=== PATIENT | male | born 1995 | race Caucasian/White ===

== ENCOUNTER → 2017-05-29 | Outpatient (CLI) | payer OTHER ==
--- NOTE | 2017-06-10 18:06 | SLEEPCENT ---
DATE OF PROCEDURE: 05/29/2017 REFERRING PROVIDER: BRIJESH Munguia INTERPRETATION: Nocturnal polysomnography was performed for the evaluation of sleep apnea syndrome symptoms consisting of excessive daytime sleepiness, mood disorders, insomnia, gasping respiration, morning headaches, and nonrestorative sleep. A total of 7 hours and 42 minutes of data was reviewed with 339 minutes of sleep identified. Sleep latency was 18.5 minutes. Rapid eye movement (REM) latency was 141.5 minutes. All stages of sleep were identified. EKG showed sinus bradycardia with an average heart rate of 46 beats per minute. Speeding and slowing was noted surrounding some respiratory events. No epileptiform discharge observed. There were 15 respiratory events identified of 10 seconds in duration or longer for an apnea-hypopnea index (AHI) of 2.7. The events were predominantly obstructive hypopnea-apneas. Respiratory effort-related arousal (RERA) index was 1.8, giving a total respiratory disturbance index (RDI) of 4.5. Mean oxygen saturation for the study was 96% with a minimum recorded value of 92%. Arousal index was 8.7. IMPRESSION: Snoring, minimal. No evidence of significant sleep-disordered breathing. RECOMMENDATION: Recommend consideration of other causes for his symptoms including but not limited to medications, sleep insufficiency, narcolepsy, or other.
== END ==
LOC: M SLEEP 19:31
PROVIDERS: ATTEND Internal Medicine Pulmonary Disease
DX: G47.30 Sleep apnea, unspecified (principal)

== ENCOUNTER → 2017-07-07 | Outpatient (CLI) | payer OTHER ==
--- NOTE | 2017-07-08 07:44 | REP ---
Clinical: Right lower quadrant pain. Findings: Lung bases demonstrate a small 3 mm density in the lateral deep left lower lobe (image 15) likely representing small scar or focal atelectasis. Lung bases are otherwise clear. Liver, spleen, pancreas, gallbladder, bilateral adrenal glands and kidneys are normal for noncontrast evaluation. The enteric system suggests moderate fecal stasis without acute obstruction or inflammatory process. No evidence for appendicitis. Pelvis demonstrates normal bladder and age-appropriate prostate/seminal vesicles. No free air. No free fluid. No obvious adenopathy or mass lesion. Surrounding musculoskeletal structures are intact. Impression: 1. No acute abdominopelvic pathology appreciated. 2. Moderate fecal stasis. 3. 3 mm density in the lateral left lung base likely represent small chronic scarring or focal atelectasis. Signed by Leo Crooks MD 07/08/2017 07:35 A
== END ==
LOC: M RAD 08:19
PROVIDERS: ATTEND Internal Medicine Gastroenterology
DX: K59.8 Other specified functional intestinal disorders (principal); R91.8 Other nonspecific abnormal finding of lung field

== ENCOUNTER → 2019-06-01 | Outpatient (REF) | payer OTHER ==
[2019-06-01 13:55] LABS: APPEARANCE, URINE CLEAR (CLEAR); BACTERIA, URINE AUTO NEGATIVE (NEGATIVE); BILIRUBIN, URINE AUTO NEGATIVE (NEGATIVE); BLOOD, URINE BLOOD NEGATIVE (NEGATIVE); COLOR, URINE STRAW (YELLOW); GLUCOSE, URINE (UA) AUTO NEGATIVE (NEGATIVE); KETONE, URINE AUTO NEGATIVE (NEGATIVE); LEUKOCYTE ESTERASE, URINE AUTO NEGATIVE (NEGATIVE); MUCUS, URINE SMALL (NEGATIVE); NITRITE, URINE AUTO NEGATIVE (NEGATIVE); PROTEIN, URINE AUTO NEGATIVE (NEGATIVE); RBC, URINE AUTO 0 /HPF (0-3); SPECIFIC GRAVITY URINE AUTO 1.005 (1.002-1.035); SQUAMOUS EPITHELIAL CELL UR AU 0 /HPF (0-6); UROBILINOGEN, URINE AUTO 0.2 mg/dL (0.0-2.0); WBC, URINE AUTO 0 /HPF (0-3)
[2019-06-01 15:16] LABS: CHLAMYDIA DNA AMPLIFICATION NEGATIVE (NEGATIVE); GC DNA AMPLIFICATION NEGATIVE (NEGATIVE)
== END ==
LOC: M SMT 13:15
PROVIDERS: ATTEND Nurse Practitioner Family
DX: N50.819 Testicular pain, unspecified (principal)

== ENCOUNTER → 2020-07-20 | Outpatient (CLI) | payer SELFPAY | LOC: M LABSMTC 11:30 | PROVIDERS: ATTEND Pediatrics | DX: Z11.59 Encounter for screening for other viral diseases (principal) ==

== ENCOUNTER → 2020-07-27 | Outpatient (CLI) | payer SELFPAY | LOC: M LABSMTC 11:18 | PROVIDERS: ATTEND Pediatrics | DX: Z20.828 Contact with and (suspected) exposure to other viral communicable diseases (principal) ==

== ENCOUNTER → 2020-07-30 | Outpatient (CLI) | payer SELFPAY | LOC: M LABSMTC 12:11 | PROVIDERS: ATTEND Pediatrics | DX: Z20.828 Contact with and (suspected) exposure to other viral communicable diseases (principal) ==

== ENCOUNTER → 2021-05-18 | Outpatient (REF) | LOC: M LABSMTC 10:34 | PROVIDERS: ATTEND Pediatrics | DX: Z11.52 Encounter for screening for COVID-19 (principal) ==

== ENCOUNTER → 2021-07-06 | Outpatient (REF) | LOC: M LABSMTC 10:04 | PROVIDERS: ATTEND Family Medicine | DX: Z11.52 Encounter for screening for COVID-19 (principal) ==